=== PATIENT | male | born 1970 | race Caucasian/White ===

== ENCOUNTER 2019-04-22 20:31 | Observation (INO) | payer MEDICAID ==
[~2019-04-22] VITALS: Ht 167.6 cm; Wt 81.8 kg
[2019-04-22 21:06] LABS: BASOPHILS 0.6 % (0-2); EOSINOPHILS 0.2 % (0-7); HEMATOCRIT 39.3 % (42.0-54.0); HEMOGLOBIN 14.7 g/dL (13.5-17.5); IMMATURE GRANULOCYTES 0.3 % (0-5); LYMPHOCYTES 15.2 % (15-50); MCH 33.6 pg (26.0-34.0); MCHC 37.4 g/dL (31.0-37.0); MCV 89.7 fL (80.0-100.0); MEAN PLATELET VOLUME 10.1 fL (7.4-10.4); MONOCYTES 8.2 % (2-11); NEUTROPHILS 75.5 % (40-80); PLATELET COUNT 268 10x3/uL (130-400); RBC 4.38 10x6/uL (4.20-6.10); RDW 12.3 % (11.5-14.5); WBC 10.8 10x3/uL (4.8-10.8)
--- NOTE | 2019-04-22 21:10 | NUR ---
PATIENT HAS BEEN WALKING AROUND IN THE HEAT FOR 4 DAYS DRINKING ALCOHOL. OVERHEATED TODAY, NAUSEATED, GENERALIZED WEAKNESS.
[2019-04-22 21:21] LABS: ALBUMIN 4.8 g/dL (3.4-5.0); ALKALINE PHOSPHATASE 97 U/L (46-116); ALT (SGPT) 43 U/L (10-68); BILIRUBIN - TOTAL 2.05 mg/dL (0.2-1.3); CALC OSMOLALITY 273 mosm/kg (275-300); CALCIUM 9.4 mg/dL (8.5-10.1); CARBON DIOXIDE 29.6 mmol/L (21.0-32.0); CHLORIDE - SERUM 92 mmol/L (98-107); CREATININE - SERUM 1.1 mg/dL (0.6-1.3); GLUCOSE 127 mg/dL (74-106); POTASSIUM - SERUM 3.4 mmol/L (3.5-5.1); PROTEIN - SERUM 8.1 g/dL (6.4-8.2); SODIUM 134 mmol/L (136-145); UREA NITROGEN 24 mg/dL (7-18); eGFR NON AFRICAN AMERICAN 75 mL/min (90-120)
[2019-04-22 21:40] LABS: C-REACTIVE PROTEIN 0.4 mg/dL (0.0-0.9); CREATINE KINASE 739 UL (21-232); LIPASE 143 U/L (73-393); MAGNESIUM - SERUM 1.6 mg/dL (1.8-2.4)
[2019-04-22 21:50] LABS: TROPONIN-I < 0.017 ng/mL (0.000-0.060)
[2019-04-22 21:57] LABS: APPEARANCE SL CLDY (CLEAR); BILIRUBIN NEGATIVE (NEGATIVE); COLOR DK YELLOW (YELLOW); GLUCOSE NEGATIVE (NEGATIVE); KETONE MODERATE mg/dL (NEGATIVE); NITRITE POSITIVE (NEGATIVE); PROTEIN 2+ mg/dL (NEGATIVE); UROBILINOGEN NORMAL (NORMAL)
[2019-04-22 21:57] LABS: CKMB 3.9 U/L (0.0-3.6)
[2019-04-22 22:05] LABS: UDS - AMPHET NEGATIVE QUAL (NEGATIVE); UDS - BARB NEGATIVE QUAL (NEGATIVE); UDS - BENZO NEGATIVE QUAL (NEGATIVE); UDS - COCAINE NEGATIVE QUAL (NEGATIVE); UDS - OPIATE NEGATIVE QUAL (NEGATIVE); UDS - PCP NEGATIVE QUAL (NEGATIVE); UDS - THC NEGATIVE QUAL (NEGATIVE)
[2019-04-22 22:06] LABS: RED CELLS - URINE 0-5 /hpf (0-5); WHITE CELLS - URINE >50 /hpf (0-5)
[2019-04-22 22:07] LABS: BACTERIA FEW /hpf (NONE SEEN); MUCUS >1+ /lpf (NONE SEEN)
[2019-04-22] MEDS ORDERED: OMNICEF300 MG PO (23:04)
--- NOTE | 2019-04-23 00:59 | NUR ---
REPORT GIVEN TO ALDO LOMELI.
--- NOTE | 2019-04-23 01:23 | NUR ---
NS IV STOP TIME IS 0120, WITH 20ML INFUSED.
--- NOTE | 2019-04-23 01:32 | NUR ---
recieved to floor, a&ox4, ambulatory ad frieda. pt is very chatty, but states he is an alcoholic wishing to become clean. denies pain at this momemt. will continue to monitor.
[2019-04-23 02:03] VITALS: BP 138/115; Ht 167.6 cm; Wt 81.8 kg
[2019-04-23 03:14] LABS: UDS - AMPHET NEGATIVE QUAL (NEGATIVE); UDS - BARB NEGATIVE QUAL (NEGATIVE); UDS - BENZO NEGATIVE QUAL (NEGATIVE); UDS - COCAINE NEGATIVE QUAL (NEGATIVE); UDS - OPIATE NEGATIVE QUAL (NEGATIVE); UDS - PCP NEGATIVE QUAL (NEGATIVE); UDS - THC NEGATIVE QUAL (NEGATIVE)
[2019-04-23 05:08] LABS: BASOPHILS 0.6 % (0-2); EOSINOPHILS 1.9 % (0-7); HEMATOCRIT 35.6 % (42.0-54.0); HEMOGLOBIN 13.3 g/dL (13.5-17.5); IMMATURE GRANULOCYTES 0.2 % (0-5); MCH 33.5 pg (26.0-34.0); MCHC 37.4 g/dL (31.0-37.0); MCV 89.7 fL (80.0-100.0); MEAN PLATELET VOLUME 10.2 fL (7.4-10.4); MONOCYTES 8.5 % (2-11); NEUTROPHILS 63.8 % (40-80); PLATELET COUNT 238 10x3/uL (130-400); RBC 3.97 10x6/uL (4.20-6.10); RDW 12.2 % (11.5-14.5); WBC 8.9 10x3/uL (4.8-10.8)
[2019-04-23 05:18] VITALS: BP 142/82
[2019-04-23 05:52] LABS: ALKALINE PHOSPHATASE 86 U/L (46-116); ALT (SGPT) 41 U/L (10-68); BILIRUBIN - TOTAL 1.67 mg/dL (0.2-1.3); CALCIUM 8.5 mg/dL (8.5-10.1); CARBON DIOXIDE 27.6 mmol/L (21.0-32.0); CHLORIDE - SERUM 98 mmol/L (98-107); CREATINE KINASE 597 UL (21-232); GLUCOSE 100 mg/dL (74-106); MAGNESIUM - SERUM 1.8 mg/dL (1.8-2.4); PHOSPHOROUS 2.5 mg/dL (2.5-4.9); POTASSIUM - SERUM 3.3 mmol/L (3.5-5.1); PROTEIN - SERUM 7.4 g/dL (6.4-8.2); SODIUM 135 mmol/L (136-145)
[2019-04-23 05:57] LABS: CALC OSMOLALITY 270 mosm/kg (275-300); CKMB 3.6 U/L (0.0-3.6); CREATININE - SERUM 0.8 mg/dL (0.6-1.3); UREA NITROGEN 16 mg/dL (7-18); eGFR NON AFRICAN AMERICAN > 90 mL/min (90-120)
--- NOTE | 2019-04-23 07:25 | NUR ---
PT RESTING IN BED WITH EYES CLOSED. OPENS EYES UPON NAME BEING CALLED. REPORTS PAIN 2/10 AT THIS TIME. IV TO LEFT AC WITH NS @ 125 ML/HR INFUSING VIA PUMP. SITE WITHOUT REDNESS OR EDEMA. DENIES FURTHER NEEDS AT THIS TIME. CL WITHIN REACH. ENCOURAGED TO CALL WITH NEEDS. CONTINUE POC
[2019-04-23 07:53] VITALS: BP 128/84
[2019-04-23] MEDS ORDERED: BACTRIM 400-801 TAB PO (11:24)
[2019-04-23 12:30] VITALS: BP 135/66
--- NOTE | 2019-04-23 12:37 | MORECARE ---
CASE MANAGEMENT DISCHARGE SUMMARY PATIENT: PATRICIA BRAVO UNIT: [id number] ADM DATE: 04/22/19 AGE: 48 : [birth year] SEX: M ROOM/BED: D.2222 AUTHOR: ANNIEDOC PHYSICIAN: REFERRING PHYSICIAN: LUDIVINA HERRING MD DATE OF SERVICE: 04/23/19 Discharge Plan Patient Name: PATRICIA BRAVO Facility: [facility]:[place] : 1970 Planned Disposition: Anticipated Discharge Date: 04/23/19 Discharge Date: Expected LOS: 1 Initial Reviewer: [email or web address] Initial Review Date: 04/23/2019 Generated: 04/23/19 1:36 pm Comments DCP- Discharge Planning Updated by [email or web address]: Sanjana Bull on 04/23/19 11:[address] Patient Name: PATRICIA BRAVO Admission Status: ER Accout number: [id number] Admission Date: 04-22-2019 : 1970 Admission Diagnosis: Attending: LUDIVINA HERRING Current LOS: 1 Anticipated DC Date: 04-23-2019 Planned Disposition: Primary Insurance: [place] PRIVATE OPTIONS IVIS Discharge Planning Comments: Received order for discharge. He states he is homeless. States he has been homeless for a long time, but has recently came to [place]. States he was homeless in [place] and [place]. States he gets food stamps and on the will have an opportunity to work for several days. He [facility] about [facility] and he has recently been at [facility] and a chem free home for 1 month. I gave him a list of homeless shelters and he is going to have Pako Rizo from [facility] He states he can stay there for 10 days. He declines a bus ticket. I also gave him a list of alcohol rehab centers and informed him he would need to make his own referral. He will be discharged today, friend is picking him up. Department Store Manager: Sanjana Bull DCPIA - Discharge Planning Initial Assessment Updated by [email or web address]: Sanjana Bull on 04/23/19 12:31 pm * Is the patient Alert and Oriented? Yes * PCP None * Pharmacy No pharmacy preference * Preadmission Environment Homeless * ADLs Independent * Equipment None * List name and contact numbers for known caregivers / representatives who currently or will assist patient after discharge: Ariella Carbone [phone] * Verbal permission to speak to the caregivers and representatives has been obtained from the patient. N/A * Community resources currently utilized None * Additional services required to return to the preadmission environment? No * Can the patient safely return to the preadmission environment? Yes * Has this patient been hospitalized within the prior 30 days at any hospital? No Patient Name: PATRICIA BRAVO Page 72472 at 1237 All edits/amendments must be made on the electronic document DICTATION DATE: 04/23/191235 LIQUID CHLORINE OPERATOR: MARLEY 04/23/196 RPT#: [id number] DC DATE: STATUS: ADM IN [facility] [address] [place] [address] END OF REPORT
--- NOTE | 2019-04-24 14:18 | MORECARE ---
CASE MANAGEMENT DISCHARGE SUMMARY PATIENT: PATRICIA BRAVO UNIT: [id number] ADM DATE: 04/22/19 AGE: 48 : 66 SEX: M ROOM/BED: D.2222 AUTHOR: ANNIEDOC PHYSICIAN: REFERRING PHYSICIAN: LUDIVINA HERRING MD DATE OF SERVICE: 04/24/19 Discharge Plan Patient Name: PATRICIA BRAVO Facility: [facility]:[place] : 1970 Planned Disposition: Anticipated Discharge Date: 04/23/19 Discharge Date: 04/23/2019 Expected LOS: 1 Initial Reviewer: [email or web address] Initial Review Date: 04/23/2019 Generated: 04/24/19 3:18 pm Comments DCP- Discharge Planning Updated by [email or web address]: Sanjana Bull on 04/23/19 11:[address] Patient Name: PATRICIA BRAVO Admission Status: ER Accout number: [id number] Admission Date: 04-22-2019 : 1970 Admission Diagnosis: Attending: LUDIVINA HERRING Current LOS: 1 Anticipated DC Date: 04-23-2019 Planned Disposition: Primary Insurance: [place] PRIVATE OPTIONS IVIS Discharge Planning Comments: Received order for discharge. He states he is homeless. States he has been homeless for a long time, but has recently came to [place]. States he was homeless in [place] and [place]. States he gets food stamps and on the will have an opportunity to work for several days. He knows about [facility] and he has recently been at [facility] and a chem free home for 1 month. I gave him a list of homeless shelters and he is going to have Pako Rizo from [facility] pick him up and take him to [facility]. He states he can stay there for 10 days. He declines a bus ticket. I also gave him a list of alcohol rehab centers and informed him he would need to make his own referral. He will be discharged today, friend is picking him up. Ross Lift Operator: Sanjana Bull DCPIA - Discharge Planning Initial Assessment Updated by [email or web address]: Sanjana Bull on 04/23/19 12:31 pm * Is the patient Alert and Oriented? Yes * PCP None * Pharmacy No pharmacy preference * Preadmission Environment Homeless * ADLs Independent * Equipment None * List name and contact numbers for known caregivers / representatives who currently or will assist patient after discharge: Ariella Carbone [phone] * Verbal permission to speak to the caregivers and representatives has been obtained from the patient. N/A * Community resources currently utilized None * Additional services required to return to the preadmission environment? No * Can the patient safely return to the preadmission environment? Yes * Has this patient been hospitalized within the prior 30 days at any hospital? No Last DP export: 04/23/19 11:37 a Patient Name: PATRICIA BRAVO Page 18103 at 1418 All edits/amendments must be made on the electronic document DICTATION DATE: 04/24/191416 ARTISTIC ASSOCIATE: MARLEY 04/24/191416 RPT#: [id number] DC DATE:04/23/19 STATUS: DIS IN [facility] [address] [place] [address] END OF REPORT
== END 2019-04-23 16:31 | disposition home or self-care (01) ==
LOC: D.ER 20:31 → D.MS 23:56 → OBSVTIME 23:56 → D.MS 23:56
PROVIDERS: Family Medicine; ADMIT Internal Medicine Nephrology; ATTEND Internal Medicine Nephrology
DX: N39.0 Urinary tract infection, site not specified (principal); M62.82 Rhabdomyolysis; N17.9 Acute kidney failure, unspecified; E87.6 Hypokalemia; E87.1 Hypo-osmolality and hyponatremia; E83.42 Hypomagnesemia; F10.10 Alcohol abuse, uncomplicated; R10.9 Unspecified abdominal pain

== ENCOUNTER 2019-08-27 12:05 | Observation (INO) | payer MEDICAID ==
[~2019-08-27] VITALS: Ht 167.6 cm; Wt 82.5 kg
--- NOTE | ~2019-08-27 | HEMODYNAMI ---
PATIENT:PATRICIA BRAVO MEDICAL RECORD: [id number] : 66 [facility] AD[facility] DATE: 08/27/19 Generatedon:08/28/201913:03 Patient name: PATRICIA BRAVO Patient #: [id number] : 1970 Date of study: 08/28/2019 Page: Of Hemodynamic Procedure Report Patient Data Patient Demographics Procedure consent was obtained First Name: PATRICIA Gender: Male Last Name: SHELLY : 1970 Patient #: [id number] Age: 48 year(s) Race: SSN: [id number] Additional ID: [id number] Contact details Address: [address] [place] [address] State: [place] City: [facility] Zip code: [address] Admission Admission Data Admission Date: 08/27/2019 Admission Time: 18:53 Arrival Date: 08/27/2019 Arrival Time: 18:53 Admit Source: Emergency Insurance Payor: Private department health insurance Room #: D.2118 [facility] #: [id number] Height (in.): 66.14 BSA: 1.89 (m2) Height (cm.): 168 BMI: 27.99 (kg/m2) Weight (lbs.): 174.17 Weight (kg.): 79 Lab Results Lab Result Date: 08/28/2019 Lab Result Time: 0:00 Biochemistry Name Units Result Min Max BUN mg/dl 17 --(---*)-- 7 18 Creatinine mg/dl 1 --(--*-)-- 0.6 1.3 eGFR ml/min 84 -*(----)-- 90 120 NONAFRICAN CBC Name Units Result Min Max Hemoglobin g/dl 12.9 -*(----)-- 13.5 17.5 Procedure Procedure Types Cath Procedure Diagnostic Procedure C LH w/Coronaries Sedation Charges Moderate Sedation up to 15 minutes PCI Procedure Coronary Stent Coronary Stent Initial Hemochron ACT Test Procedure Description Procedure Date Procedure Date: 08/28/2019 Procedure Start Time: 12:40 Procedure End Time: 12:57 Procedure Staff Name Function Samuel Paige MD Performing Physician Ailyn Fofana RT Monitor Claudia Sánchez RT Scrub Jordana Medina RN Nurse Procedure Data Cath Procedure Fluoroscopy Diagnostic fluoroscopy Total fluoroscopy Time: 2.7 time: 2.7 min min Diagnostic fluoroscopy Total fluoroscopy dose: 757 dose: 757 mGy mGy Contrast Material Contrast Material Type Amount (ml) Isovue 300 97 Entry Location Entry Primary Successful Side Size Upsize Upsize Entry Closure Succes sful Closure Location (Fr) 1 (Fr) 2 (Fr) Remarks Device Remarks Femoral Right 5 Fr 6 Fr artery Short Estimated blood loss: 5 ml Diagnostic catheters Device Type Used For End Catheter Placement MULTIPACK JL 4.0 5Fr Left Coronary catheter Angiography MULTIPACK 3DRC 5Fr Right Coronary catheter Angiography MULTIPACK Pigtail 5 Fr LV Angiography catheter Procedure Complications No complications Procedure Medications Medication Administration Route Dosage 0.9% NaCl I.V. 100 ml/hr Oxygen etCO2 Nasal cannula 2 l/min Lidocaine 2% added to field 20 Heparin Flush Bag added to field 2 bags (1000units/500ml NS) Ativan 2 mg Fentanyl I.V. 50 mcg Heparin Bolus I.V. 5000 units Integrilin (Bolus I.V. 7.3 ml 2mg/ml) Plavix P.O. 600 mg Integrilin (Bolus wasted 2.7 ml 2mg/ml) Hemodynamics Rest BSA: 1.89 (m2) HGB: 12.9 (g/dl) O2 Consumption: Estimated: 219.54 (ml/min) O2 Co nsumption indexed: Estimated:116.16 (ml/min/m) Heart Rate: 61 (bpm) Pressure Samples Time Site Value (mmHg) Purpose Heart Use Rate(bpm) 12:46 LV 124/27,35 Snapshot 69 Gradients Valve Time Site Site Mean SEP/DFP Peak To Heart Use 1 2 (mmHg) (sec/min) Peak Rate (mmHg) (bpm) Aortic 12:46 LV AO 71 Snapshots Pre Cath Intra NCS Post Cath Vital Signs Time Heart Resp SPO2 etCO2 NIBP (mmHg) Rhythm Pain Sedation Rate (ipm) (%) (mmHg) Status Level (bpm) 12:31:51 61 18 90 26.5 118/76(106) NSR 0 (11) 10(A) , No pain 12:35:59 61 12 100 38.6 116/86(114) NSR 0 (11) 10(A) , No pain 12:40:13 70 11 100 43 114/70(89) NSR 0 (11) 10(A) , No pain 12:44:22 68 10 100 38.6 124/77(107) NSR 0 (11) 10(A) , No pain 12:48:32 70 11 99 44.6 121/78(94) NSR 0 (11) 10(A) , No pain 12:52:40 79 13 99 42.4 118/82(95) NSR 0 (11) 10(A) , No pain 12:56:52 71 11 99 40.8 117/69(88) NSR 0 (11) 10(A) , No pain Medications Time Medication Route Dose Verified Delivered Reason Notes Effectiveness by by 12:30:55 0.9% NaCl I.V. 100 Samuel Hewitta used for ml/hr [facility] procedure MD LOMELI 12:31:01 Oxygen etCO2 2 Samuel Jordana used for Nasal l/min [facility] procedure cannula MD LOMELI 12:31:06 Lidocaine 2% added 20ml Samuel Baker for local to vial [facility] anesthetic field MD SOTO 12:31:10 Heparin Flush added 2 Samuel Dunbarory used for Bag to bags [facility] procedure (1000units/500ml field MD SOTO NS) 12:42:20 Ativan IVP 2 mg Samuel Silveira for sedation St Sulaiman Medina MD, RN 12:42:26 Fentanyl I.V. 50 Samuel Jordana for sedation mcg [facility] Sulaiman Medina MD, RN 12:50:02 Heparin Bolus I.V. 5000 Samuel Hewitta for verif ied units [facility] anticoagulation with Dr. SOTO RN [place] 12:50:23 Integrilin I.V. 7.3 Samuel Jordana for (Bolus 2mg/ml) ml [facility] Sulaiman Medina antiplatelet RN therapy 12:50:43 Plavix P.O. 600 Samuel Hewitta for mg [facility] Sulaiman Medina antiplatelet RN therapy 12:50:53 Integrilin wasted 2.7 Samuel Hewitta for (Bolus 2mg/ml) ml [facility] Sulaiman Medina antiplatelet MD LOMELI therapy Procedure Log Time Note 12:06:42 Diagnostic Cath Status : Elective 12:07:39 Informed consent obtained and on chart 12:15:52 Claudia Sánchez RT(R) sent for patient. Start room use. 12:20:43 Arrival Date: 08/27/2019 6:53:00 PM 12:21:23 Admit Source: Emergency department 12:: Insurance Payor : Private health insurance 12:22:28 Patient Height : 66.14 inches 12:22:32 Patient Weight : 174.17 lbs 12::47 Lab Result : BUN 17 mg/dl 12:: Lab Result : Hemoglobin 12.9 g/dl 12:: Lab Result : Creatinine 1 mg/dl 12:: Lab Result : eGFR NONAFRICAN 84 ml/min 12::53 Time tracking: Regular hours (M-F 7:00 - 5:00) 12:23:56 Plan of Care:Hemodynamics will remain stable., Cardiac rhythm will remain stable., Comfort level will be maintained., Respiratory function will remain adequate., Patient/ family verbilizes understanding of procedure., Procedure tolerated without complication., Recovers from procedure without complications.. 12:24:16 Patient received from Med II to CCL 2 Alert and oriented. Tansferred to table in Supine position. 12:24:17 Warm blankets applied, and lexi hugger turned on for patient comfort. 12:24:17 Correct patient and procedure confirmed by team. 12:24:18 ECG and BP/O2 sat monitors applied to patient. 12:30:47 Vital chart was started 12:30:55 0.9% NaCl 100 ml/hr I.V. was administered by Jordana Medina RN; used for procedure; Verbal order read back and verified. 12:31:01 Oxygen 2 l/min etCO2 Nasal cannula was administered by Jordana Medina RN; used for procedure; Verbal order read back and verified. 12:31:06 Lidocaine 2% 20ml vial added to field was administered by Samuel Paige MD; for local anesthetic; Verbal order read back and verified. 12:31:10 Heparin Flush Bag (1000units/500ml NS) 2 bags added to field was administered by Samuel Paige MD; used for procedure; Verbal order read back and verified. 12:32:59 Baseline sample Acquired. 12:33:02 Rhythm: sinus rhythm 12:33:04 Full Disclosure recording started 12:33:07 H&P Date Dictated: 08/28/2019 New H&P dictated by physician.. 12:33:38 Pre-procedure instructions explained to patient. 12:33:38 Pre-op teaching completed and patient verbalized understanding. 12:33:44 Family unavailable. 12:33:45 Patient NPO since Midnight. 12:33:47 Is the patient allergic to Iodine/contrast media? No. 12:33:49 Was the patient premedicated? Yes 12:33:50 Is patient on blood thinner?No 12:33:51 Patient diabetic? No. 12:33:54 Previous problem with sedation/anesthesia? No ? 12:33:56 Snore? Yes 12:33:57 Sleep apnea? No 12:33:58 Deviated septum? No 12:33:58 Opens mouth fully? Yes 12:33:59 Sticks out tongue? Yes 12:34:01 Airway obstruction? No ? 12:34:03 Dentures? No ? 12:34:07 Pre procedure: right dorsailis pedis pulse 2+ Normal; easily identifiable; not easily obliterated 12:34:09 Pre procedure: left dorsailis pedis pulse 2+ Normal; easily identifiable; not easily obliterated 12:34:13 Patient pain scale 0/10 ?. 12:34:19 IV patent on arrival in right forearm with 0.9% NaCl at [facility]. 12:34:22 Lab results completed and on chart. 12:36:42 Risk of Mortality: 0.1 12:36:44 Risk of blood transfusion: 0.1 12:36:48 Risk of RYAN: 0.6 12:36:51 Right groin area was prepped with chlora-prep and draped in sterile fashion 12:36:52 Alarms reviewed by R. N. 12:36:52 Sharps counted by scrub and verified by R.N. 12:36:53 Physician arrived 12:36:54 --------ALL STOP TIME OUT------ 12:36:55 Final Timeout: patient, procedure, and site verified with staff and physician. All members of the team are in agreement. 12:36:57 Right groin site verified by team. 12:37:01 Fire Safety Assessment: A--An alcohol-based skin anteseptic being used preoperatively., C--Open oxygen or nitrous oxide is being used., D--An ESU, laser, or fiber-optic light is being used. 12:37:04 Physical assessment completed. ASA score P 2 - A patient with mild systemic disease as per Samuel Paige MD. 12:37:10 2) 60-89 Mildly reduced kidney function, and other findings (as for stage 1) point to kidney disease. 12:37:14 Maximum allowable contrast dose (3.7 X eGFR X 0.75)233 ml. 12:37:20 Sedation plan: IV Moderate Sedation Medication:Versed, Fentanyl 12:40:19 Use device set Femoral Dx 12:40:20 ACIST Syringe (26790) opened to sterile field. 12:40:20 Bag Decanter (2002S) opened to sterile field. 12:40:21 Medline Cath Pack ([id number]) opened to sterile field. 12:40:22 ACIST Hand Control (60514) opened to sterile field. 12:40:23 ACIST Manifold (05328) opened to sterile field. 12:40:23 DIAGNOSTIC Multipack 5Fr catheter set (BZ9511) opened to sterile field. 12:40:24 Tegaderm 4 x 4 (1626W) opened to sterile field. 12:40:24 SHEATH 5FR [place] (JHY251) opened to sterile field. 12:40:25 EMERALD Guide Wire (485-732) opened to sterile field. 12:40:30 Procedure started. 12:40:35 Local anesthetic to right femoral artery with Lidocaine 2% by Samuel Paige MD.INITIAL ACCESS ONLY 12:40:42 A 5 Fr sheath was inserted into the Right Femoral artery 12:41:45 A MULTIPACK JL 4.0 5Fr catheter was advanced over the wire and used for Left Coronary Angiography. 12:42:20 Ativan 2 mg IVP was administered by Jordana Medina RN; for sedation; Verbal order read back and verified. 12:42:26 Fentanyl 50 mcg I.V. was administered by Jordana Medina RN; for sedation; Verbal order read back and verified. 12:43:07 LCA angiography performed. 12:43:12 Injector settings: Ml/sec: 3, Volume: 6, 12:43:41 Catheter removed. 12:43:45 A MULTIPACK 3DRC 5Fr catheter was advanced over the wire and used for Right Coronary Angiography. 12:44:28 RCA angiography performed. 12:44:35 Injector settings: Ml/sec: 3, Volume: 6, 12:44:52 Catheter removed. 12:44:57 A MULTIPACK Pigtail 5 Fr catheter was advanced over the wire and used for LV Angiography. 12:46:12 LV hemodynamics recorded. 12:46:37 EF : 55 % 12:46:45 Catheter removed. 12:46:46 Proceeding to intervention. 12:47:12 SHEATH 6FR [place] (GCW520) opened to sterile field. 12:47:12 INFLATOR Merit BasixCompak (QW8289) opened to sterile field. 12:47:12 WHISPER 300cm guide wire ([id number]) opened to sterile field. 12:47:13 GUIDE 6FR XBLAD 3.5 catheter ([id number]) opened to sterile field. 12:47:21 Sheath upsized to a 6 Fr Short. 12:47:24 ACC Pre-intervention ROSALIE Flow is 3. 12:47:30 6 Fr XBLAD 3.5 guide catheter was inserted over the wire 12:47:37 WHISPER wire advanced. 12:48:42 Wire advanced across lesion. 12:50:02 Heparin Bolus 5000 units I.V. was administered by Jordana Medina RN; for anticoagulation; verified with Dr. Bryan Verbal order read back and verified. 12:50:19 Pre PCI Site: [place] mLAD has 80% stenosis. 12:50:23 Integrilin (Bolus 2mg/ml) 7.3 ml I.V. was administered by Jordana Medina RN; for antiplatelet therapy; Verbal order read back and verified. 12:50:43 Plavix 600 mg P.O. was administered by Jordana Medina RN; for antiplatelet therapy; Verbal order read back and verified. 12:50:53 Integrilin (Bolus 2mg/ml) 2.7 ml wasted was administered by Jordana Medina RN; for antiplatelet therapy; Verbal order read back and verified. 12:51:45 Place stent Inflation Number: 1 A INTEGRITY OTW 3.0 X 12 stent ([id number]) was prepped and advanced across the Mid LAD 80. The stent was deployed at 14 SERENE for 0:30 (min:sec) 0. 12:53:27 Stent catheter was removed intact over wire. 12:53:28 Wire removed. 12:53:28 Guide catheter removed. 12:53:45 EXOSEAL 6Fr (EX600) opened to sterile field. 12:53:48 Procedure ended.(Physican Out) 12:54:50 Fluoroscopy time 02.70 minutes. 12:54:57 Fluoroscopy dose: 757 mGy 12:54:57 Flurop Dose total: 757 12:55:04 Dose Area Product 36830 mGy/cm. 12:55:19 Contrast amount:Isovue 300 97ml. 12:55:25 Maximum allowable dose exceeded? No. 12:55:26 Sharps counted by scrub and verified by R.N. 12:55:34 Insertion/operative site no bleeding no hematoma. 12:55:37 Post-op/insertion site Right Femoral artery dressed using a 4 x 4 and Tegaderm. 12:55:38 Post Procedure Pulses reassessed and unchanged 12:55:40 Post procedure rhythm: unchanged. 12:55:44 Estimated blood loss: 5 ml 12:55:45 Post procedure instruction explained to patient.Patient verbalizes understanding. 12:55:45 Patient needs reinforcement of post procedure teaching. 12:56:51 Procedure type changed to Cath procedure, Diagnostic procedure, C, [facility] w/Coronaries, Sedation Charges, Moderate Sedation up to 15 minutes, PCI procedure, Coronary Stent, Coronary Stent Initial, Hemochron ACT Test 12:56:51 Procedure and supply charges have been captured, reviewed, submitted and are correct. 12:57:07 Procedure Complication : No complications 12:57:09 Vital chart was stopped 12:57:11 [facility] Findings: MVD- PCI performed (see procedure note) 12:57:13 Operative report dictated upon procedure completion. 12:57:13 See physician's report for complete and final results. 12:57:16 Report given to [facility]. 12:57:19 Patient transfered to [facility] with Stretcher. 12:57:21 Procedure ended. 12:57:21 Full Disclosure recording stopped 12:57:33 ACC-PCI Only Patient was given prescriptions, or instructed by Samuel Paige MD to start/continue the following medications upon discharge: Plavix 12:57:34 End room use (Document Last) 12:58:30 ACT drawn and resulted at 274 seconds. (normal therapeutic range 180-240 seconds). 13:02:09 End room use (Document Last) 13:02:34 End room use (Document Last) Intervention Summary Intervention Notes Time ActionType Lesion and Equipment Action# Pressure Duration Attributes Used 12:51:45 Place stent Mid LAD INTEGRITY 1 14 00:30 OTW 3.0 X 12 stent ([id number]) Device Usage Item Name Manufacture Quantity Catalog Hospital Part Current Minimal L ot# / Number Charge Number Stock Stock Serial# Code ACIST Acist 1 15952 591197 350878 150186 20 Syringe Medical (89538) Systems Inc Bag Microtek 1 2001S 013089 89772 230332 5 Decanter Medical Inc. () Medline Medline 1 [id number] 935191 71083 503686 5 Cath Pack ([id number]) ACIST Hand Acist 1 72016 356716 781118 021102 5 Control Medical (84848) Systems Inc ACIST Acist 1 12545 428163 281868 766938 5 Manifold Medical (68451) Systems Inc DIAGNOSTIC Cardinal 1 PE7639 781617 32710 492163 30 MultipCollective Health 5Fr catheter set (NK8913) Tegaderm 4 3M 1 1626W 987913 463309 158329 5 x 4 (1626W) SHEATH 5FR Terumo 1 SFQ515 738944 977979 502128 5 [place] (TXV458) EMERALD Cardinal 1 502-455 822150 131041 079118 5 Guide Wire Health (502-455) MULTIPACK Cardinal 1 995295 5 JL 4.0 5Fr Health catheter MULTIPACK Cardinal 1 819349 5 3DRC 5Fr Health catheter MULTIPACK Cardinal 1 327292 5 Pigtail 5 Health Fr catheter SHEATH 6FR Terumo 1 JZK772 204591 299459 832912 40 [place] (ATL713) INFLATOR Merit 1 AI2962 406638 063166 820982 15 [facility] Medical BasixCompak (VV6156) WHISPER Haynes 1 [id number] 905344 930228 704763 5 300cm guide Vascular wire (1688243KM) GUIDE 6FR Cardinal 1 [id number] 177396 673663 602879 10 XBLAD 3.5 Health catheter (14713268) INTEGRITY Medtronic 1 [id number] 699366 198654 457901 1 0 [id number] OTW 3.0 X 12 stent ([id number]) EXOSEAL 6Fr Cardinal 1 EX600 872544 202419 196186 10 (EX600) Health Signature Audit Jerome Stage Time Signature Unsigned Intra-Procedure 08/28/2019 Ailyn Fofana 1:02:09 PM RT(R) Intra-Procedure 08/28/2019 Jordana Medina 1:02:34 PM RN Intra-Procedure 08/28/2019 Samuel Cruz 1:03:05 PM Sulaiman SOTO Signatures Performing Physician : Signature : Samuel Paige MD Date : Time : Monitor : Ailyn Fofana RT Signature : Date : Time : Nurse : Jordana Medina RN Signature : Date : Time : [address] [place] [address]
[~2019-08-27 12:05] MED LIST: BACTRIM 400-801 TAB PO; OMNICEF300 MG PO
[2019-08-27 13:12] LABS: CALC OSMOLALITY 285 mosm/kg (275-300); CALCIUM 9.2 mg/dL (8.5-10.1); CARBON DIOXIDE 32.7 mmol/L (21.0-32.0); CHLORIDE - SERUM 105 mmol/L (98-107); CREATININE - SERUM 0.8 mg/dL (0.6-1.3); GLUCOSE 106 mg/dL (74-106); POTASSIUM - SERUM 3.7 mmol/L (3.5-5.1); SODIUM 144 mmol/L (136-145); UREA NITROGEN 9 mg/dL (7-18); eGFR NON AFRICAN AMERICAN > 90 mL/min (90-120)
[2019-08-27 13:20] LABS: BASOPHILS 0.3 % (0-2); EOSINOPHILS 0.3 % (0-7); HEMATOCRIT 43.8 % (42.0-54.0); HEMOGLOBIN 15.7 g/dL (13.5-17.5); IMMATURE GRANULOCYTES 0.2 % (0-5); LYMPHOCYTES 15.5 % (15-50); MCH 33.8 pg (26.0-34.0); MCHC 35.8 g/dL (31.0-37.0); MCV 94.4 fL (80.0-100.0); MEAN PLATELET VOLUME 10.1 fL (7.4-10.4); MONOCYTES 7.8 % (2-11); NEUTROPHILS 75.9 % (40-80); PLATELET COUNT 218 10x3/uL (130-400); RBC 4.64 10x6/uL (4.20-6.10); RDW 12.4 % (11.5-14.5); WBC 9.9 10x3/uL (4.8-10.8)
[2019-08-27 13:26] LABS: INR 1.01 (0.85-1.17); PROTIME 13.2 SECONDS (11.6-15.0)
[2019-08-27 13:31] LABS: ALBUMIN 4.3 g/dL (3.4-5.0); ALKALINE PHOSPHATASE 74 U/L (46-116); ALT (SGPT) 31 U/L (10-68); BILIRUBIN - TOTAL 0.35 mg/dL (0.2-1.3); CKMB 3.1 U/L (0.0-3.6); CREATINE KINASE 243 UL (21-232); MAGNESIUM - SERUM 2.2 mg/dL (1.8-2.4); PROTEIN - SERUM 8.1 g/dL (6.4-8.2); TROPONIN-I < 0.017 ng/mL (0.000-0.060)
[2019-08-27 14:35] LABS: UDS - AMPHET NEGATIVE QUAL (NEGATIVE); UDS - BARB NEGATIVE QUAL (NEGATIVE); UDS - BENZO NEGATIVE QUAL (NEGATIVE); UDS - COCAINE NEGATIVE QUAL (NEGATIVE); UDS - OPIATE NEGATIVE QUAL (NEGATIVE); UDS - PCP NEGATIVE QUAL (NEGATIVE); UDS - THC NEGATIVE QUAL (NEGATIVE)
[2019-08-27 16:36] LABS: CKMB 2.9 U/L (0.0-3.6); CREATINE KINASE 245 UL (21-232); TROPONIN-I 0.018 ng/mL (0.000-0.060)
[2019-08-27 19:06] VITALS: BP 115/78
--- NOTE | 2019-08-27 19:11 | NUR ---
REPORT GIVEN TO ARMANI HERZOG USING SBAR
[2019-08-27 20:52] VITALS: BP 121/86
--- NOTE | 2019-08-27 21:30 | NUR ---
PATIENT ARRIVED FROM THE ER. PATIENT IS ALERT AND ORIENTED, RESTING COMFORTABLY IN BED. RESPIRATIONS ARE EVEN AND UNLABORED. NO S/S OF DISTRESS. NO C/O PAIN. CALL LIGHT WITHIN REACH. WILL CPOC.
[2019-08-28] VITALS (7 sets, daily range): BP systolic 98–137; BP diastolic 53–78; Ht 167.6 cm; Wt 82.5 kg
[2019-08-28 00:14] LABS: CKMB 2.6 U/L (0.0-3.6); CREATINE KINASE 267 UL (21-232); TROPONIN-I < 0.017 ng/mL (0.000-0.060)
--- NOTE | 2019-08-28 02:45 | NUR ---
PATIENT RESTING COMFORTABLY IN BED. RESPIRATIONS ARE EVEN AND UNLABORED. NO S/S OF DISTRESS. NO C/O PAIN. CALL LIGHT WITHIN REACH. WILL CPOC.
[2019-08-28 06:33] LABS: BASOPHILS 0.4 % (0-2); EOSINOPHILS 1.4 % (0-7); HEMATOCRIT 37.2 % (42.0-54.0); HEMOGLOBIN 12.9 g/dL (13.5-17.5); IMMATURE GRANULOCYTES 0.1 % (0-5); LYMPHOCYTES 30.7 % (15-50); MCHC 34.7 g/dL (31.0-37.0); MCV 95.1 fL (80.0-100.0); MONOCYTES 10.2 % (2-11); NEUTROPHILS 57.2 % (40-80); PLATELET COUNT 214 10x3/uL (130-400); RBC 3.91 10x6/uL (4.20-6.10); RDW 12.5 % (11.5-14.5)
[2019-08-28 06:58] LABS: WBC 7.1 10x3/uL (4.8-10.8)
[2019-08-28 07:08] LABS: CALCIUM 8.4 mg/dL (8.5-10.1); CARBON DIOXIDE 28.7 mmol/L (21.0-32.0); CHLORIDE - SERUM 106 mmol/L (98-107); CKMB 2.6 U/L (0.0-3.6); CREATINE KINASE 251 UL (21-232); GLUCOSE 101 mg/dL (74-106); MAGNESIUM - SERUM 1.8 mg/dL (1.8-2.4); PHOSPHOROUS 4.2 mg/dL (2.5-4.9); POTASSIUM - SERUM 3.8 mmol/L (3.5-5.1); SODIUM 139 mmol/L (136-145); eGFR NON AFRICAN AMERICAN 84 mL/min (90-120)
[2019-08-28 07:09] LABS: CALC OSMOLALITY 279 mosm/kg (275-300); TROPONIN-I < 0.017 ng/mL (0.000-0.060); UREA NITROGEN 17 mg/dL (7-18)
--- NOTE | 2019-08-28 07:15 | NUR ---
RECEIVED PT IN BED AAOX4 RESP UNLABORED SKIN W/D COLOR WNL NAD NOTED
[2019-08-28 08:42] LABS: CHOL - HDL RATIO 2.5 ratio (2.3-4.9); LDL-HDL RATIO 1.3 ratio (1.5-3.5)
--- NOTE | 2019-08-28 10:11 | NUR ---
PT REFUSES TO WEAR SCDs
--- NOTE | 2019-08-28 14:40 | CN ---
PATIENT NAME:PATRICIA BRAVO MEDICAL RECORD: [id number] : 66 LOCATION:[facility] D.2118 ADMIT DATE: 08/27/19 ACCOUNT: [id number] CONSULTING PHYSICIAN: GARY BARRERA MD REFERRING PHYSICIAN: LUDIVINA HERRING MD DATE OF CONSULTATION: 08/28/2019 HISTORY OF PRESENT ILLNESS: A 48-year-old gentleman with a strong family history of coronary artery disease, history of hyperlipidemia in the past, treated, admitted with chest pain, described it as pressure and tightness, younger brother who recently had intervention to his LAD. Does report some dyspnea on exertion as well, had onset of rest symptomology yesterday. We are asked to see him concerning his cardiovascular status. PAST MEDICAL HISTORY: Includes; 1. History of alcohol abuse. 2. Dyslipidemia. MEDICATIONS: None chronically. ALLERGIES: None known. SOCIAL HISTORY: Recently released from rehab, returning home to [place] this weekend. Nonsmoker. No set exercise program. REVIEW OF SYSTEMS: The patient reports easy bruising but reports no swollen glands. The patient reports no fever, no night sweats, no significant weight gain, no significant weight loss. No significant exercise tolerance. The patient reports no dry eyes, no irritation, no vision change. Patient reports no difficulty hearing and no ear pain. Patient reports no frequent nose bleeds or nose and sinus problems. Patient reports on arm pain on exertion. No shortness of breath while lying down. No history of heart murmur. Patient reports no cough, no wheezing or coughing up blood. Patient reports no abdominal pain, no vomiting. Normal appetite. No diarrhea and not vomiting blood. No nausea and no constipation. Patient reports no incontinence. No difficulty urinating. No hematuria. No increased frequency. Patient reports no muscle aches. No weakness, no arthralgias, no back pain. No swelling of the extremities. Patient reports no abnormal mole, no jaundice, no rashes. Reports no loss of consciousness. No weakness and no numbness. No seizures, dizziness, or headaches. The patient reports no depression, no sleep disturbance, feeling safe in a relationship and no alcohol abuse. Patient reports on fatigue. Reports no runny nose or sinus pressure. No itching, no hives, and no frequent sneezing. PHYSICAL EXAMINATION: GENERAL: Well-developed, well-nourished, no acute distress. VITAL SIGNS: Blood pressure 137/68, pulse 110. HEENT: Normocephalic, atraumatic. NECK: No bruits noted. HEART: Regular. Questionable S4 gallop. LUNGS: Good air excursion. ABDOMEN: Soft, nontender. EXTREMITIES: Pulses 2+ with no edema. IMPRESSION: Acute coronary syndrome, multiple risk factors. CONSULT REPORT [id number] PATRICIA BRAVO PLAN: For angiography, intervention based on above. TRANSINT:[id number] Voice Confirmation ID: [id number] DOCUMENT ID: [id number] GARY BARRERA MD at 1440 CC: [id number] DICTATION DATE: 08/28/19 0853 CUSHION WORKER: 08/28/19 1219 ADM IN [id number] [place] [address]
[2019-08-29 04:00] VITALS: BP 106/63
[2019-08-29 06:09] LABS: BASOPHILS 0.3 % (0-2); EOSINOPHILS 2.4 % (0-7); HEMATOCRIT 36.3 % (42.0-54.0); HEMOGLOBIN 12.7 g/dL (13.5-17.5); IMMATURE GRANULOCYTES 0.2 % (0-5); LYMPHOCYTES 28.3 % (15-50); MCH 32.9 pg (26.0-34.0); MEAN PLATELET VOLUME 9.9 fL (7.4-10.4); MONOCYTES 10.2 % (2-11); NEUTROPHILS 58.6 % (40-80); PLATELET COUNT 194 10x3/uL (130-400); RBC 3.86 10x6/uL (4.20-6.10); RDW 12.5 % (11.5-14.5); WBC 6.6 10x3/uL (4.8-10.8)
[2019-08-29 06:31] LABS: CALC OSMOLALITY 281 mosm/kg (275-300); CALCIUM 8.5 mg/dL (8.5-10.1); CARBON DIOXIDE 28.1 mmol/L (21.0-32.0); CHLORIDE - SERUM 107 mmol/L (98-107); CREATININE - SERUM 0.8 mg/dL (0.6-1.3); GLUCOSE 94 mg/dL (74-106); POTASSIUM - SERUM 3.7 mmol/L (3.5-5.1); SODIUM 142 mmol/L (136-145); UREA NITROGEN 10 mg/dL (7-18); eGFR NON AFRICAN AMERICAN > 90 mL/min (90-120)
[2019-08-29 08:54] VITALS: BP 126/91
[2019-08-29 09:56] LABS: APPEARANCE CLEAR (CLEAR); BILIRUBIN NEGATIVE (NEGATIVE); COLOR STRAW (YELLOW); GLUCOSE NEGATIVE (NEGATIVE); KETONE NEGATIVE (NEGATIVE); NITRITE NEGATIVE (NEGATIVE); PROTEIN NEGATIVE (NEGATIVE); SPECIFIC GRAVITY 1.005 (1.005-1.020); UROBILINOGEN NORMAL (NORMAL)
[2019-08-29] MEDS ORDERED: ASPIRIN81 MG PO (10:38)
[2019-08-29] MEDS ORDERED: PLAVIX75 MG PO (10:38)
[2019-08-29] MEDS ORDERED: PROTONIX40 MG PO (10:38)
[2019-08-29 12:00] VITALS: BP 119/89
[2019-08-29] MEDS ORDERED: PRAVACHOL40 MG PO (12:24)
--- NOTE | 2019-08-29 13:11 | NUR ---
IV AND TELEMETRY DCD. DC PLANS GIVEN. UNDERSTANDING VOICED. ESCORTED TO CAR BY W/C.
--- NOTE | 2019-08-31 08:28 | OP ---
PATIENT NAME: PATRICIA BRAVO MEDICAL RECORD: [id number] :66 LOCATION:D.M2 D.2118 ADMISSION DATE:08/27/19 SURGEON: GARY BARRERA MD DATE OF OPERATION: 08/28/2019 PROCEDURE: Left heart catheterization, selective coronary angiography, right femoral artery approach. CATHETERS: A 5-Martiniquais sheath, 5/4 left and right Zamzam, 5/4 pig. The procedure was well tolerated. The patient was returned to [place]. Sheath was removed. ExoSeal device placed. FINDINGS: Left ventriculography in 30-degree BETH view: Normal wall motion and normal systolic function. CORONARY ANATOMY: LEFT MAIN: Left main is free of disease. LAD: Has a distal stenosis about 80%. CIRCUMFLEX: Luminal irregularities with no flow obstructive stenosis. RIGHT CORONARY ARTERY: Luminal irregularities with no flow obstructive stenosis. IMPRESSION: Single-vessel disease involving left anterior descending. Plan intervention momentarily. DESCRIPTION OF PROCEDURE: A 5-Martiniquais sheath was exchanged for a 6-Martiniquais sheath. A XB LAD guide catheter provided good guide catheter support followed by 300 cm Whisper wire was placed across the tightly occluded LAD down to distal portion of vessel. Stent deployed was 3.0 x 12 mm Integrity nondrug-eluting stent up to 14 atmospheres for 45 seconds. Final angiography shows excellent resolution of 80% stenosis, no significant residual. ROSALIE flow was 3 throughout the procedure. Heparin and Integrilin were used during the case. Plavix was loaded in the lab. IVC given age and risk factor modification will be most important. In addition, he was started on statin therapy as well. TRANSINT:[id number] Voice Confirmation ID: [id number] DOCUMENT ID: [id number] GARY BARRERA MD at 0828 CC: [id number] DICTATION DATE: 08/28/19 1305 HEAD INSPECTOR: 08/28/19 2306 DIS IN 08/29/19 [id number] [place] [address]
== END 2019-08-29 13:12 | disposition home or self-care (01) ==
LOC: D.ER 12:05 → OBSVTIME 18:53 → D.M2 18:53
PROVIDERS: Emergency Medicine; Internal Medicine Interventional Cardiology; ADMIT Internal Medicine Nephrology; ATTEND Internal Medicine Nephrology
DX: I24.9 Acute ischemic heart disease, unspecified (principal); F10.229 Alcohol dependence with intoxication, unspecified; K21.9 Gastro-esophageal reflux disease without esophagitis; E78.5 Hyperlipidemia, unspecified